=== PATIENT | male | born 1960 | race Caucasian/White ===

== ENCOUNTER 2021-10-28 01:46 | Emergency (ER) | payer OTHER, BC ==
[2021-10-28 02:13] VITALS: BP 148/81; PULSE 65
[2021-10-28] MEDS ORDERED: Acetaminophen/HYDROcodone 325-10 MG Tab PO ONE (02:35)
[2021-10-28] MEDS ORDERED: Cephalexin 250 MG Cap PO ONE (02:35)
== END 2021-10-28 03:10 | disposition home or self-care (01) ==
LOC: LL.ED 01:46
DX: S62.612A Displaced fracture of proximal phalanx of right middle finger, initial encounter for closed fracture (principal); I48.91 Unspecified atrial fibrillation; E78.00 Pure hypercholesterolemia, unspecified; E11.9 Type 2 diabetes mellitus without complications; N40.0 Benign prostatic hyperplasia without lower urinary tract symptoms; E66.9 Obesity, unspecified; Z68.30 Body mass index [BMI] 30.0-30.9, adult; Z79.82 Long term (current) use of aspirin; Z79.899 Other long term (current) drug therapy; W23.0XXA Caught, crushed, jammed, or pinched between moving objects, initial encounter
CPT/HCPCS: 73140; 99283; A9270